=== PATIENT | female | born 2005 | race Caucasian/White ===

== ENCOUNTER 2023-01-18 15:00 | Emergency (ER) | payer MEDICAID ==
[~2023-01-18] VITALS: Ht 165.1 cm; Wt 59.0 kg
[2023-01-18] MEDS ORDERED: SODIUM CHLORIDE 0.9% 1,000 ML IV ONE (15:15)
[2023-01-18 16:00] LABS: BASOPHILS % 0.5 % (0.0-2.0); EOSINOPHILS % 3.2 % (0.0-5.0); HEMATOCRIT. 33.4 % (36.0-48.0); HEMOGLOBIN. 10.9 g/dL (12.0-16.0); LYMPHOCYTES % 28.2 % (20.0-50.0); MEAN CORPUSCULAR HEMOGLOBIN 26.7 pg (28.0-32.0); MEAN CORPUSCULAR VOLUME 81.7 fL (81.0-99.0); MEAN PLATELET VOLUME 8.7 fl (7.4-10.4); MONOCYTES % 7.5 % (2.0-8.0); NEUTROPHILS % 60.6 % (40.0-76.0); PLATELET 372 x1000/uL (130-400); RED BLOOD CELL COUNT 4.09 mill/uL (4.2-5.4); RED CELL DISTRIBUTION WIDTH 15.5 % (11.6-14.6)
[2023-01-18 16:01] LABS: CHLORIDE 109 mEq/L (98-107)
[2023-01-18 16:06] LABS: HCG SCREEN NEGATIVE
[2023-01-18] MEDS ORDERED: ACETAMINOPHEN 325MG TABLET PO ONE (16:30)
[2023-01-18] MEDS ORDERED: ASPIRIN 325MG EC TABLET PO ONE (16:30)
[2023-01-18 18:00] VITALS: BP 130/69
[2023-01-18] MEDS ORDERED: ACET-2708 MT (18:17)
== END 2023-01-18 18:36 | disposition home or self-care (01) ==
LOC: ER 15:00
DX: R00.2 Palpitations (principal); R06.02 Shortness of breath; R07.89 Other chest pain; D64.9 Anemia, unspecified
CPT/HCPCS: 36415; 71045; 80053; 83880; 84484; 84703; 85025; 93005; 99285; J7030; Z7610